=== PATIENT | female | born 2000 | race Caucasian/White ===

== ENCOUNTER → 2022-05-03 | Outpatient (CLI) | payer OTHER, SELFPAY ==
[2022-05-07 21:07] LABS: QNTFERON TB Mitogen Value > 10.00 IU/mL (.); QNTFERON TB Nil Value 0.06 IU/mL (.); QNTFERON TB1+ Ag Value 0.08 IU/mL (.); QNTFERON TB2+ Ag Value 0.08 IU/mL (.)
[2022-05-09 17:10] LABS: QNTIFERON TB Positive Criteria Negative (Negative)
== END | disposition home or self-care (01) ==
PROVIDERS: PCP Family Medicine; Referring Provider Family Medicine; Visit Provider Family Medicine
DX: Z11.1 Encounter for screening for respiratory tuberculosis (principal)
CPT/HCPCS: 36415; 86480

== ENCOUNTER → 2022-05-15 | Outpatient (CLI) | payer OTHER, SELFPAY ==
[2022-05-15 15:25] LABS: Hepatitis B Surface Antibody Reactive
== END | disposition home or self-care (01) ==
PROVIDERS: PCP Family Medicine; Referring Provider Family Medicine; Visit Provider Family Medicine
DX: Z01.84 Encounter for antibody response examination (principal)
CPT/HCPCS: 36415; 86706

== ENCOUNTER → 2023-02-12 | Outpatient (CLI) | payer OTHER, SELFPAY ==
[2023-02-14 17:07] LABS: QNTFERON TB Mitogen Value > 10.00 IU/mL (.); QNTFERON TB Nil Value 0 IU/mL (.); QNTFERON TB1+ Ag Value 0.02 IU/mL (.); QNTFERON TB2+ Ag Value 0.31 IU/mL (.); QNTIFERON TB Positive Criteria Negative (Negative)
== END | disposition home or self-care (01) ==
LOC: MTLAB 09:13
PROVIDERS: PCP Family Medicine; Referring Provider Family Medicine; Visit Provider Family Medicine
DX: Z11.1 Encounter for screening for respiratory tuberculosis (principal)
CPT/HCPCS: 36415; 86480

== ENCOUNTER → 2025-05-06 | Outpatient (CLI) | payer OTHER, SELFPAY ==
[2025-05-06 17:48] LABS: Hematocrit 40.0 % (37-47); Hemoglobin 13.1 g/dL (12.0-15.0); Immature Granulocytes Count 0.020 X10^3/uL (0.0-0.0); Mean Corp Hgb Conc 32.8 g/dL (32-36); Mean Corpuscular Volume 94.6 fL (81-99); Mean Platelet Vol. 10.0 fl (6.2-12.0); NRBC Flagged by Analyzer 0 % (0-5); Platelet Count 326 K/mm3 (150-450); RBC Distribution Width CV 12.4 % (11.6-14.6); RBC Distribution Width SD 43.1 fl (35.1-43.9); Red Blood Count 4.23 M/mm3 (4.2-5.4); White Blood Count 7.0 K/mm3 (4.4-11.0)
== END | disposition home or self-care (01) ==
LOC: BFHLAB 15:09
PROVIDERS: PCP Family Medicine; Visit Provider Nurse Practitioner Family
DX: M79.89 Other specified soft tissue disorders (principal); Z83.49 Family history of other endocrine, nutritional and metabolic diseases
CPT/HCPCS: 36415; 84439; 84443; 85025

== ENCOUNTER → 2025-05-23 | Outpatient (CLI) | payer OTHER, SELFPAY ==
--- NOTE | 2025-05-23 12:22 | US_ITS ---
PROCEDURE: HEAD/NECK SOFT TISSUE 05/23/2025 REASON FOR EXAM: ASSESS SOFT TISSUE MASS, LIKELY CYST Right lower cervical mass. TECHNIQUE: HEAD/NECK SOFT TISSUE COMPARISON: None FINDINGS: The right lobe of the thyroid gland is enlarged. It measures 5.6 cm x 2.5 cm x 2.2 cm. The palpable abnormality corresponds to a 3.8 cm x 2.4 cm 2.1 cm complex solid and cystic mass in the right lobe of the thyroid with increased vascularity. This is a TI-RADS 4 lesion. Biopsy recommended. The left lobe of the thyroid measures 4.4 cm x 1.1 cm x 1.3 cm. It is unremarkable. US/Head/Neck Soft Tissue IMPRESSION: The palpable mass in the right cervical region corresponds to a complex solid a nd cystic mass in the right lobe of the thyroid measuring 3.8 cm 2.4 cm 2.1 cm. This is TI-RADS category 4. Biopsy recommende d. Reading Location: [facility]
== END | disposition home or self-care (01) ==
PROVIDERS: PCP Family Medicine; Referring Provider Nurse Practitioner Family; Visit Provider Nurse Practitioner Family
DX: M79.89 Other specified soft tissue disorders (principal)
CPT/HCPCS: 76536

== ENCOUNTER → 2025-05-30 | Outpatient (CLI) | payer OTHER, SELFPAY ==
--- NOTE | 2025-05-30 08:00 | FLU_PTH ---
PATIENT: OSWALDO BRUSH LOC: [facility] U#:[id number] AGE/SX: 24/ ROOM: RE05/30/[address]: Dr. Jasiel Santiago MD : 2000 BED: DIS: 05/30/2025 SPEC #: [id number] RECD: 05/30/25 10:39 STATUS: JEROD SHAWANDA #: [id number] BENJAMIN: 05/30/25 08:[address]: Jasiel Santiago DEPT: CYTOLOGY RECD BY: Alexander Carvalho ENTERED: 05/31/25 08:15 SP TYPE: Fluid OTHR DR: Dr. Joy Barnett DO Tissues: A - Thyroid gland, NOS B - Thyroid gland, NOS Procedures: Special Stain Group II Surgery Specimen Level IV Cytospin Fluid HEADER OPERATION: Fine needle aspiration of right thyroid nodule PRE-OP DIAGNOSIS: Right thyroid nodule TISSUE SUBMITTED: A- Right thyroid nodule, B- Right thyroid aspirate DIAGNOSIS CYTOLOGY A. Right thyroid, nodule, FNA (cytospin, slide x4): - Benign (TBS II). B. Right thyroid, aspiration: - Non-diagnostic (TBS I) - Few follicular cells and macrophages present. CYTOLOGY STUDY Slides are reviewed. CYTOLOGY GROSS A. Received is 30 ml of pale- red cytolyt with particles and 4 smears and a syringe with 10ml of red-cloudy labeled with the patient's name and and designated per the requisition as Right thyroid nodule. Submitted for cytology and cytospin. B. Received is 10 ml of red-cloudy fluid labeled with the patient's name and and designated per the requisition as Right thyroid aspirate. Submitted for cytology and cytospin. 05/31/2025 CPT: 59543,94312
== END | disposition home or self-care (01) ==
PROVIDERS: PCP Family Medicine; Referring Provider Surgery; Visit Provider Surgery
DX: E04.1 Nontoxic single thyroid nodule (principal)
CPT/HCPCS: 88108; 88305; 88313

== ENCOUNTER → 2025-07-19 | Outpatient (CLI) | payer OTHER, SELFPAY ==
[2025-07-19 18:16] LABS: Ferritin 45 ng/mL (22-378); Iron 249 ug/dL (50-170); Magnesium 2.4 mg/dL (1.5-2.2); Vitamin B12 451 pg/mL (180-914); Vitamin D,25 Hydroxy 23.8 ng/mL (30-100)
[2025-07-19 20:17] LABS: FOLATES,SERUM (FOLIC ACID) 9.13 ng/mL (4.60-34.80)
[2025-07-21 04:11] LABS: PROGESTERONE 0.8 ng/mL (.)
[2025-07-25 23:07] LABS: Zinc, Plasma or Serum 65 ug/dL (44-115)
== END | disposition home or self-care (01) ==
LOC: LABSPEC 15:37
PROVIDERS: PCP Family Medicine; Referring Provider Nurse Practitioner Family; Visit Provider Nurse Practitioner Family
DX: L70.8 Other acne (principal); E28.9 Ovarian dysfunction, unspecified; R53.83 Other fatigue
CPT/HCPCS: 82306; 82607; 82627; 82670; 82728; 82746; 83540; 83735; 84144; 84403; 84630; 82626